=== PATIENT | female | born 1995 | race Caucasian/White ===

== ENCOUNTER 2016-12-23 18:58 | Emergency (ER) ==
[2016-12-23 19:12] VITALS: BP 148/84
[2016-12-23] MEDS ORDERED: TYLENOL PO ONE (19:32)
[2016-12-23] MEDS ORDERED: ROBAXIN PO ONE (19:32)
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
--- NOTE | 2016-12-24 08:12 | Diag Imaging Result Document ---
PROCEDURE NAME: CERVICAL SPINE W/O CONTRAST - 12/23/2016 CT CERVICAL SPINE: A CT dose reduction protocol was used. COMPARISON: None. FINDINGS: Alignment is anatomic. Vertebral body heights and intervertebral disc spaces are preserved. Neural foramina are patent. Soft tissues are clear. IMPRESSION: Negative Exam. [facility]
== END 2016-12-23 20:58 | disposition home or self-care (01) ==
LOC: ED 18:58
DX: S16.1XXA Strain of muscle, fascia and tendon at neck level, initial encounter (principal); M54.2 Cervicalgia; G44.209 Tension-type headache, unspecified, not intractable; R51 Headache; V89.2XXA Person injured in unspecified motor-vehicle accident, traffic, initial encounter; Z79.51 Long term (current) use of inhaled steroids
CPT/HCPCS: 72125; 81025; 99283